=== PATIENT | male | born 1985 | race African-American/Black ===

== ENCOUNTER 2016-09-08 10:07 | Emergency (ER) | payer OTHER | END 2016-09-08 10:49 | disposition left against medical advice (07) | LOC: EMS 10:08 | DX: R06.02 Shortness of breath (principal); Z53.21 Procedure and treatment not carried out due to patient leaving prior to being seen by health care provider ==

== ENCOUNTER 2020-01-26 11:21 | Emergency (ER) | payer MEDICAID, OTHER ==
[~2020-01-26] VITALS: Ht 177.8 cm; Wt 68.2 kg
[2020-01-26] MEDS ORDERED: IBUPROFEN 400 MG TABLET PO ONE (12:00)
[2020-01-26 12:22] VITALS: BP 123/84
== END 2020-01-26 12:22 | disposition home or self-care (01) ==
LOC: EMS 11:40
DX: L03.116 Cellulitis of left lower limb (principal); F12.90 Cannabis use, unspecified, uncomplicated